=== PATIENT | female | born 1945 | race Caucasian/White ===

== ENCOUNTER 2016-07-06 06:39 | Inpatient (IN) | payer OTHER, MEDICARE ==
[2016-06-18 13:44] VITALS: BMI 42.0
--- NOTE | 2016-06-18 14:27 | PAT Medication Instructions ---
Service Date Jun 18, 2016. 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 Instructions For Your Scheduled Surgery Methotrexate (Methotrexate), 17.5 MG PO WEEK (check with obstetrics and gynecology professor for instructions) Albuterol Inhaler (Ventolin Inhaler), 2 PUFFS INH QID PRN (not longer taking) Albuterol Sulf (Albuterol Sulfate 0.083% For Inh), 3 ML INH QID PRN (not longer taking) - Hold the following medications 2 weeks prior to surgery: Red Yeast Rice Extract (Red Yeast Rice), 600 MG PO QAM Coenzyme Q10 (Ubidecarenone) (Co Q-10), 50 MG PO QAM Fish Oil (Hyannis Port-3), 1 CAP PO QAM Sulfasalazine (Sulfazine Ec), 1,000 MG PO TID (per surgeon instructions) Meloxicam (Mobic), 15 MG PO QAM (per surgeon instructions) - Hold the following medications the morning of surgery: Folic Acid (Folvite), 5 MG PO QAM Lisinopril/Hctz (Prinzide 20-25MG), 1 TAB PO QAM - Take the following medications the morning of surgery with a sip of water: Tramadol (Ultram), 100 MG PO TID PRN for RN (can take up to four hours prior to surgery if needed) - Take the following medications as scheduled the night before surgery: Tramadol (Ultram), 100 MG PO TID PRN for RN. Omeprazole (Omeprazole), 20 MG PO HS If you have any questions please call us at [phone] or [phone] ( [place]) or [phone]
[2016-06-18 14:51] LABS: BASO % 0.3 %; BASO ABS # 0.02 K/uL (0-0.2); COMPLETE YES; EOS % 1.5 %; HEMATOCRIT 37.4 % (37-47); IG% 0.3 %; LYMPH % 24.8 %; LYMPH ABS # 1.97 K/uL (1.2-3.4); MEAN CORPUSCULAR HEMOGLOBIN 29.9 pg (25-34); MEAN PLATELET VOLUME 10.8 fL (7.4-10.4); MONO % 10.2 %; NEUT % 62.9 %; PLATELET COUNT 195 K/uL (130-400); RED BLOOD COUNT 4.25 M/uL (4.2-5.4); WHITE BLOOD COUNT 7.93 K/uL (4.8-10.8)
[2016-06-18 15:01] LABS: PARTIAL THROMBOPLASTIN RATIO 1.2; PROTHROMBIN TIME (PATIENT) 11.1 SECONDS (9.0-12.0)
--- NOTE | 2016-06-18 15:05 | DIAGNOSTIC IMAGING REPORT ---
CHEST 2 VIEWS ROUTINE CLINICAL HISTORY: pat preoperative evaluation COMPARISON STUDY: 06/27/2012 FINDINGS: Mild cardiomegaly. Chronic bibasilar plaque atelectasis. No focal infiltrate. Moderate degenerative changes thoracic spine. IMPRESSION: Chronic change. No acute process. Electronically signed by: Vin Wallace M.D. 06/18/2016 3:04 PM Dictated Date/Time: 06/18/2016 3:03 PM
[2016-06-18 15:10] LABS: URINE APPEARANCE CLEAR (CLEAR); URINE BILIRUBIN NEG (NEG); URINE COLOR DK YELLOW; URINE NITRITE NEG (NEG); URINE SPECIFIC GRAVITY 1.011 (1.000-1.030); UROBILINOGEN NEG (NEG); ZZUR CULT IF INDIC CLEAN CATCH YES
[2016-06-18 15:10] LABS: BUN/CREATININE RATIO 19.9 (10-20); CALCIUM 9.3 mg/dl (8.5-10.1); CREATININE 0.88 mg/dl (0.60-1.20); POTASSIUM 3.6 mmol/L (3.5-5.1)
[2016-06-18 15:16] LABS: MANUAL MICROSCOPIC REQUIRED? NO; REVIEW REQ? NO
--- NOTE | 2016-07-02 08:47 | HISTORY & PHYSICAL EXAMINATION ---
DATE OF ADMISSION: 07/06/2016 CHIEF COMPLAINT: Right hip pain. HISTORY OF PRESENT ILLNESS: Key is a 71-year-old female with a 10-year history of right hip pain. She rates her pain a 10/10. She has pain with her daily activities. She has limited standing and walking tolerance. Pain is worse with weightbearing. The patient has had injections, aqua therapy, anti-inflammatories and tramadol over the years without relief. She has failed conservative treatment and is scheduled for right hip replacement. PAST MEDICAL HISTORY: Rheumatoid arthritis, hypertension, asthma, Park's esophagus, GERD, monoclonal gammopathy, Zenker diverticulum, and sleep apnea. She denies heart disease, diabetes, or DVT. PAST SURGICAL HISTORY: Tonsillectomy, appendectomy, tubal ligation, D\T\C, hysterectomy, cholecystectomy, microdiscectomy L4-L5, left knee arthroscopy, right knee arthroscopy, Zenker's diverticulum repair, EGD, left knee arthroplasty, right total knee arthroplasty, bilateral cataract extraction, and colonoscopy. SOCIAL HISTORY: The patient denies alcohol or tobacco use. She lives in a single-story home. She lives alone and is retired. FAMILY HISTORY: Negative for DVT. MEDICATIONS: Sulfasalazine 500 mg 2 tablets t.i.d., methotrexate 2.5 mg 7 tablets weekly, fish oil 1200 mg daily, meloxicam 15 mg daily, red yeast rice 600 mg daily, CoQ10 50 mg daily, tramadol 50 mg 2 tablets t.i.d., folic acid 1 mg 5 tablets daily, lisinopril 20/25 mg daily, omeprazole 20 mg daily, CPAP at bedtime, albuterol inhaler 2 puffs p.r.n. ALLERGIES: IVP DYE, THEOPHYLLINE, ANTIHISTAMINES, SHRIMP, PAPER TAPE, CATGUT SUTURE, AND PLAQUENIL. REVIEW OF SYSTEMS: See HPI. Ten other systems reviewed, all negative. PHYSICAL EXAMINATION: VITAL SIGNS: Height 5 feet 4 inches, weight 244 pounds. BMI 42. GENERAL: This is a well-developed, well-nourished female who is alert and oriented x3. Mood and affect are appropriate. HEENT: Normocephalic, atraumatic. Mucous membranes are moist and intact. NECK: Supple without lymphadenopathy. HEART: Regular rate and rhythm without murmurs, rubs or gallops. LUNGS: Clear to auscultation without wheezes or rhonchi. ABDOMEN: Soft and nontender. Bowel sounds are equal and active. EXTREMITIES: No ecchymosis, redness or warmth. Thigh and calf are soft and nontender. Log roll of the hip reproduces pain in the groin. Range of motion is decreased. She is neurovascularly intact with +5/5 strength. X-RAY EXAMINATION: AP and lateral views show joint space narrowing and osteophyte formation. IMPRESSION: Degenerative joint disease, right hip. PLAN: The patient will be admitted for a right total hip arthroplasty. We will plan on aspirin for DVT prophylaxis. PCP is Dr. Brody Cisneros, [facility]. She will have [facility] for home physical therapy.
[~2016-07-06] VITALS: Ht 162.6 cm; Wt 112.0 kg
[2016-07-06] VITALS (8 sets, daily range): BP systolic 92–128; BP diastolic 56–73; PULSE 59–70; TEMP 36.3–36.7; O2SAT 94–98; Ht 162.6 cm; Wt 112.0 kg
[2016-07-06] MEDS: TRANEXAMIC ACID INJ 1,000 MG in SODIUM CHLORIDE 0.9% 100ML 100 ML IV SCH ×2 (06:30→09:29)
[~2016-07-06 06:39] MED LIST: ACETAMINOPHEN 500 MG TAB PO SCH; ALBU1NEB10 INH; ALBUAER19 INH; BUPIVACAINE 0.5 % 5 MG/1 ML PF 10ML VIAL ONE; CEFAZOLIN 2000 MG/60 ML D5W 60 ML IV SCH; COEN50CA2 PO; CeleBREX 200 MG CAP PO SCH; DEXAMETHASONE 4 MG TAB PO SCH; FAMOTIDINE 20 MG TAB PO SCH; FOLI1TAB7 PO; GABAPENTIN 300 MG CAP PO SCH; LACTATED RINGER'S 1000ML 1,000 ML IV SCH; LACTATED RINGER'S 1000ML 500 ML IV ONE; LACTATED RINGER'S 1000ML IV SCH; LISI20TA55 PO; MELO7.5T5 PO; METH2.5T PO; METOCLOPRAMIDE HCL 10 MG TAB PO SCH; OMEG10007 PO; OMEP20TA PO; OXYCODONE HCL 10 MG TABCR (OXYCONTIN) PO SCH; POLYMYXIN B SULFATE 100,000 UNITS in NSS 100ML IR SCH; RED600TA PO; ROPIVACAINE 5MG/ML 30 ML 150 MG, BUPIVACAINE/EPINEPHR 0.5% MPF 30 ML, KETOROLAC TROMETH... INFIL SCH; SULF500T35 PO; TRAM-10 PO; VANCOMYCIN INJ 400 MG in NSS 100ML IR SCH
--- NOTE | 2016-07-06 07:55 | DIAGNOSTIC IMAGING REPORT ---
FLEXION-EXTENSION VIEWS OF THE CERVICAL SPINE CLINICAL HISTORY: PRE OP, FLEXION/EXTENSION COMPARISON STUDY: No previous studies for comparison. FINDINGS: There are multilevel degenerative changes present. The prevertebral soft tissues are normal. There is no evidence of instability on flexion or extension. IMPRESSION: No evidence of instability on flexion or extension. Electronically signed by: Isaiah Lieberman M.D. 07/06/2016 7:54 AM Dictated Date/Time: 07/06/2016 7:51 AM
[2016-07-06] MEDS ORDERED: FENTANYL CITRATE INJ 50 MCG/1 ML 2 ML VIAL ONE (08:14)
[2016-07-06] MEDS ORDERED: MIDAZOLAM HCL 1 MG/ML 2ML VIAL ONE ×2 (08:14)
--- NOTE | 2016-07-06 08:25 | History & Physical Bridge Note ---
H&P Re-Evaluation Bridge Note: I have examined the patient, reviewed the History & Physical and in the interval since the performance of the History & Physical I have noted the following changes of clinical significance: No changes noted
[2016-07-06] MEDS ORDERED: augmentin PO (08:31)
[2016-07-06] MEDS ORDERED: ORTHO JOINT ANESTHETIC ONE (08:56)
[2016-07-06] MEDS ORDERED: BACITRACIN 50000 UNIT VIAL ONE (08:57)
[2016-07-06] MEDS ORDERED: POVIDONE-IODINE OP SOLN 30 ML BTL ONE (08:57)
[2016-07-06] MEDS ORDERED: LIDOCAINE HCL 2% 2 ML VIAL (20MG/ML) ONE (10:09)
[2016-07-06] MEDS ORDERED: ONDANSETRON INJ 2 MG/ML 2 ML VIAL ONE (10:09)
[2016-07-06] MEDS ORDERED: PROPOFOL IV EMULSION 10 MG/ML 20 ML VIAL IV ONE (10:09)
[2016-07-06] MEDS ORDERED: ATROPINE SULFATE 0.1 MG/ML 5ML SYR IV PRN (10:15)
[2016-07-06] MEDS ORDERED: KETOROLAC TROMETHAMINE 15 MG/ML VIAL IV. PRN (10:15)
[2016-07-06] MEDS ORDERED: PHENYLEPHRINE 100MCG/ML 5ML SYR IV PRN (10:15)
[2016-07-06] MEDS ORDERED: EpHEDrine SULFATE INJ 50 MG/ML AMP IV PRN (10:15)
[2016-07-06] MEDS ORDERED: ONDANSETRON INJ 2 MG/ML 2 ML VIAL IV PRN ×2 (10:15→11:30)
[2016-07-06] MEDS ORDERED: HYDROmorphone INJ 2 MG/ML SYR/VIAL IV PRN (10:15)
[2016-07-06] MEDS ORDERED: EpHEDrine SULFATE 50MG/5ML SYR ONE (10:59)
[2016-07-06] MEDS ORDERED: PHENYLEPHRINE HCL INJ 10 MG/ML VIAL ONE (10:59)
--- NOTE | 2016-07-06 11:16 | [facility] Post Operative Brief Note ---
Immediate Operative Summary Operative Date Jul 06, 2016. Pre-Operative Diagnosis Right hip degenerative joint disease Post-Operative Diagnosis Right hip degenerative joint disease MORBID OBESITY BMI 43 Procedure(s) Performed right total hip arthroplasty with direct anterior approach Surgeon Dr. Keegan Menjivar Loader Engineer Surgeon(s) Ángela Staples PA-C Estimated Blood Loss 150ML Findings OBESE INFLAM DJD Specimens A: right femoral head Complication(s) None Disposition Recovery Room / PACU
--- NOTE | 2016-07-06 11:18 | DIAGNOSTIC IMAGING REPORT ---
INTRAOPERATIVE RADIOGRAPH CLINICAL HISTORY: Right hip arthroplasty. Fluoroscopy time: 15 seconds. FINDINGS: A single spot fluoroscopic image of the right hip from an arthroplasty procedure is presented. A bipolar right hip arthroplasty is in near anatomic alignment. At least 2 cortical lag screws transfix the acetabular cup. There is no evidence of acute fracture on this fluoroscopic image. IMPRESSION: Intraoperative image from a right hip arthroplasty procedure as above. Electronically signed by: Aneudy Hunter M.D. 07/06/2016 11:17 AM Dictated Date/Time: 07/06/2016 11:16 AM
[2016-07-06] MEDS ORDERED: ALUMINUM/MAGNESIUM/SIMETH (MAALOX MAX) 30 ML UDC PO PRN (11:30)
[2016-07-06] MEDS ORDERED: OXYCODONE HCL IR 5 MG TAB (IMMEDIATE RELEASE) PO PRN (11:30)
[2016-07-06] MEDS ORDERED: ALBUTEROL HFA 8 GM INHALER INH PRN (11:30)
[2016-07-06] MEDS ORDERED: MAGNESIUM HYDROXIDE SUSP 30 ML UDC PO PRN (11:30)
[2016-07-06] MEDS ORDERED: BISACODYL 10 MG SUPP PR PRN (11:30)
[2016-07-06] MEDS ORDERED: METOCLOPRAMIDE HCL INJ 5 MG/ML 2 ML VIAL IV PRN (11:30)
[2016-07-06] MEDS ORDERED: ZOLPIDEM TARTRATE 5 MG TAB PO PRN (11:30)
[2016-07-06] MEDS ORDERED: ALBUTEROL 0.083% NEBU SOLN 3 ML VIAL INH PRN (11:30)
[2016-07-06] MEDS ORDERED: MoRPHine SULFATE 2 MG/ML CARP IV PRN (11:30)
[2016-07-06] MEDS ORDERED: SOD PHOSPHATE/SOD BIPHOSPHATE ENEMA 132 ML BTL PR PRN (11:30)
--- NOTE | 2016-07-06 12:18 | Anesthesiology Progress Note ---
Anesthesia Post Op Note Date & Time Jul 06, 2016 at 12:18 Vital Signs Pain Intensity: 0 Vital Signs Past 12 Hours Date Time Temp Pulse Resp B/P Pulse Ox O2 Delivery O2 Flow Rate FiO2 07/06/16 12:15 36.6 61 16 119/50 96 Nasal Cannula 2 07/06/16 12:05 63 16 112/56 98 Nasal Cannula 2 07/06/16 11:55 66 16 110/76 100 Nasal Cannula 2 07/06/16 11:45 61 16 112/57 100 Mask 10 07/06/16 11:39 36.4 63 16 118/51 97 Mask 10 07/06/16 07:52 36.7 67 16 128/67 96 Room Air Notes Mental Status: alert / awake / arousable, participated in evaluation Pt Amnestic to Procedure: Yes Nausea / Vomiting: adequately controlled Pain: adequately controlled Airway Patency, RR, SpO2: stable & adequate BP & HR: stable & adequate Hydration State: stable & adequate Anesthetic Complications: no major complications apparent
--- NOTE | 2016-07-06 13:10 | DIAGNOSTIC IMAGING REPORT ---
AP PELVIS AND RIGHT HIP 2 VIEWS CLINICAL HISTORY: Degenerative arthritis. COMPARISON STUDY: No previous studies for comparison. FINDINGS: There are postsurgical changes of a total right hip arthroplasty. The acetabular and femoral components appear well seated. Overlying surgical drains are evident. There is no fracture. There is no dislocation. IMPRESSION: Postsurgical changes of a total right hip arthroplasty. Electronically signed by: Isaiah Lieberman M.D. 07/06/2016 1:08 PM Dictated Date/Time: 07/06/2016 1:08 PM
[2016-07-06] MEDS: D5W AND 1/2NSS + 20MEQ KCL 1,000 ML IV SCH (13:45)
[2016-07-06] MEDS: ACETAMINOPHEN 500 MG TAB PO SCH ×2 (13:51→22:04)
[2016-07-06] MEDS: KETOROLAC TROMETHAMINE 15 MG/ML VIAL IV. SCH ×2 (13:52→22:05)
--- NOTE | 2016-07-06 14:58 | OPERATIVE REPORT ---
DATE OF OPERATION: 07/06/2016 PREOPERATIVE DIAGNOSIS: Degenerative arthritis, right hip. POSTOPERATIVE DIAGNOSIS: Same with morbid obesity, BMI of 42. PROCEDURE: Right total hip replacement. SURGEON: Josse Menjivar MD INSPECTOR MACHINED PARTS: ALESSANDRO Ortega ANESTHESIA: Spinal. BLOOD LOSS: 150 mL. REPLACEMENT FLUIDS: 1800 mL of crystalloid. DRAINS: Hemovacs x1. CULTURES: None. COMPLICATIONS: None. COMPONENTS USED: Suero and Nephew Polar hip system: Acetabulum size 50, femur size 4 lateral offset, and femoral head -3, 32 mm. NOTE: ALESSANDRO Ortega was present and assisted throughout due to the complicated nature of this case. She helped with preparation and set up, first assisted throughout and personally closed the fascial, subcutaneous and skin layers and applied the postoperative dressing. DESCRIPTION OF PROCEDURE: Following satisfactory spinal, the patient was supine. The patient was placed on the table with the right leg in the traction device and the left leg in the well leg luna. Leg was prepared with ChloraPrep and draped sterilely. Following a surgical time-out, an anterior approach was performed. The patient had a very large subcutaneous fat layer, which measured about 4 inches thick and made exposure tedious and required extra time and difficulty. Eventually, the fascia was divided in line with the incision and the interval between the sartorius and tensor muscles was opened. The circumflex femoral vessels were identified and ligated. An anterior capsulotomy was performed exposing the arthritic femoral neck and head. Femoral neck and head were trimmed and removed. The acetabular self-retraining retractor was placed. Acetabular preparation was completed and under fluoroscopic guidance, reaming was completed and a 50 shell was impacted into an anatomic position and secured with a dome screw. Local anesthetic was placed and after irrigation, the poly liner was placed. The femur was placed in a position of external rotation, extension and adduction. Access to the proximal canal was difficult because again of the obese body habitus. The canal was sounded and prepared up to the size 4. A trial reduction with a -3 head using fluoroscopy showed good fit and fill of the proximal canal and scientologist of leg lengths using fluoroscopic landmarks. The hip was dislocated and trial component removed. The final implant was placed. After irrigation, the hip was reduced. Fluoroscopy confirming similar position. A Betadine soak was performed. After 5 minutes, the Betadine was irrigated. The capsule was closed with 1-0 Vicryl interrupted. A drain was placed. Following irrigation, the fascia was closed with a running suture of #1 Vicryl, subcutaneous tissues with #1 and 2-0 Vicryl and the skin with a running subcuticular stitch of 3-0 V-Loc. Dermabond and a dry dressing were applied. The patient was returned to her bed in stable condition. I attest to the content of the Intraoperative Record and any orders documented therein. Any exceptio ns are noted below.
[2016-07-06] MEDS ORDERED: TRANEXAMIC ACID INJ 1,000 MG in SODIUM CHLORIDE 0.9% 100ML 100 ML IV SCH (17:30)
[2016-07-06] MEDS: CEFAZOLIN IV 2,000 MG in DEXTROSE 5% 50ML 50 ML IV SCH (17:47)
[2016-07-06] MEDS: ASPIRIN 81 MG ECTAB PO SCH (20:57)
[2016-07-06] MEDS: SENNA 8.6 MG TAB PO SCH (20:57)
[2016-07-07] VITALS (8 sets, daily range): BP systolic 91–103; BP diastolic 57–70; PULSE 58–65; TEMP 36.3–36.6; O2SAT 91–98
[2016-07-07] MEDS: TRAMADOL HCL 50 MG TAB PO PRN (00:26)
[2016-07-07] MEDS: D5W AND 1/2NSS + 20MEQ KCL 1,000 ML IV SCH ×2 (00:26→09:21)
[2016-07-07] MEDS: CEFAZOLIN IV 2,000 MG in DEXTROSE 5% 50ML 50 ML IV SCH (02:02)
[2016-07-07] MEDS: KETOROLAC TROMETHAMINE 15 MG/ML VIAL IV. SCH ×4 (02:03→21:05)
[2016-07-07 05:46] LABS: BASO % 0.1 %; BASO ABS # 0.01 K/uL (0-0.2); COMPLETE YES; HEMATOCRIT 29.5 % (37-47); IG% 0.3 %; LYMPH % 6.6 %; LYMPH ABS # 1.18 K/uL (1.2-3.4); MEAN CORPUSCULAR HEMOGLOBIN 29.1 pg (25-34); MEAN CORPUSCULAR HGB CONC 34.2 g/dl (32-36); MEAN PLATELET VOLUME 11.1 fL (7.4-10.4); MONO % 10.3 %; NEUT % 82.7 %; PLATELET COUNT 185 K/uL (130-400); RED BLOOD COUNT 3.47 M/uL (4.2-5.4); WHITE BLOOD COUNT 18.01 K/uL (4.8-10.8)
[2016-07-07] MEDS: ACETAMINOPHEN 500 MG TAB PO SCH ×3 (05:52→21:05)
[2016-07-07 06:11] LABS: BUN/CREATININE RATIO 27.5 (10-20); CALCIUM 8.9 mg/dl (8.5-10.1); CREATININE 1.1 mg/dl (0.60-1.20); POTASSIUM 4.5 mmol/L (3.5-5.1)
[2016-07-07] MEDS: PANTOprazole SOD 40 MG TAB PO SCH (08:41)
[2016-07-07] MEDS: MULTIVITAMIN TAB PO SCH (08:42)
[2016-07-07] MEDS: LISINOPRIL/HCTZ 20/25MG TAB PO SCH (08:43)
[2016-07-07] MEDS: ASPIRIN 81 MG ECTAB PO SCH ×2 (08:43→21:04)
[2016-07-07] MEDS ORDERED: COENZYME Q10 50 MG PO SCH (09:00)
--- NOTE | 2016-07-07 09:49 | Orthopedic Progress Note ---
Orthopedic Progress Note Date of Service Jul 07, 2016. Subjective Post OP Day: 1 Reports: feeling well, Denies: SOB, calf pain, chest pain, light headedness, nausea / vomiting Objective calves soft nontender, N/V intact, dressing C/D/I, A&O x3, toes mobile, hemovac drainage (155/100cc per shift) Date Time Temp Pulse Resp B/P Pulse Ox O2 Delivery O2 Flow Rate FiO2 07/07/16 08:45 65 101/63 07/07/16 07:13 36.3 64 16 91/57 91 Room Air 07/07/16 07:05 Room Air 07/07/16 03:00 36.6 64 18 94/58 98 CPAP 07/07/16 00:28 96 CPAP 07/06/16 23:21 36.4 62 18 92/56 94 CPAP 07/06/16 18:30 96 Nasal Cannula 2.0 07/06/16 15:45 36.4 64 16 114/73 96 Nasal Cannula 2.0 07/06/16 14:54 36.3 65 16 97/64 96 Room Air 07/06/16 13:46 68 16 92/58 96 Nasal Cannula 2.0 07/06/16 13:15 70 16 100/61 95 2.0 07/06/16 13:04 97 Nasal Cannula 2.0 07/06/16 12:50 Nasal Cannula 2.0 07/06/16 12:45 36.6 59 18 101/66 98 Nasal Cannula 2.0 07/06/16 12:35 36.6 64 16 110/53 98 Nasal Cannula 2 07/06/16 12:25 62 16 108/53 96 Nasal Cannula 2 07/06/16 12:15 36.6 61 16 119/50 96 Nasal Cannula 2 07/06/16 12:05 63 16 112/56 98 Nasal Cannula 2 07/06/16 11:55 66 16 110/76 100 Nasal Cannula 2 07/06/16 11:45 61 16 112/57 100 Mask 10 07/06/16 11:39 36.4 63 16 118/51 97 Mask 10 Laboratory Results 24 Hours: Test 07/07/16 04:45 White Blood Count 18.01 K/uL Red Blood Count 3.47 M/uL Hemoglobin 10.1 g/dL Hematocrit 29.5 % Mean Corpuscular Volume 85.0 fL Mean Corpuscular Hemoglobin 29.1 pg Mean Corpuscular Hemoglobin Concent 34.2 g/dl Platelet Count 185 K/uL Mean Platelet Volume 11.1 fL Neutrophils (%) (Auto) 82.7 % Lymphocytes (%) (Auto) 6.6 % Monocytes (%) (Auto) 10.3 % Eosinophils (%) (Auto) 0.0 % Basophils (%) (Auto) 0.1 % Neutrophils # (Auto) 14.92 K/uL Lymphocytes # (Auto) 1.18 K/uL Monocytes # (Auto) 1.85 K/uL Eosinophils # (Auto) 0.00 K/uL Basophils # (Auto) 0.01 K/uL Assessment & Plan Assessment: POD#1 sp right JUANITO, direct anterior Inhouse Planning Pain Management: Celebrex, PO Tylenol, Oxy IR DVT Prophylaxis: TEDs, SCDs, ASA Discharge Planning Discharge Planning: home with home health (PLAN ON DC TO HOME WEDS.)
--- NOTE | 2016-07-07 10:54 | Anesthesiology Progress Note ---
Anesthesia Post Op Note Date & Time Jul 07, 2016 at 10:53 Vital Signs Pain Intensity: 1.0 Vital Signs Past 12 Hours Date Time Temp Pulse Resp B/P Pulse Ox O2 Delivery O2 Flow Rate FiO2 07/07/16 10:51 36.3 58 16 97/61 96 Room Air 07/07/16 08:45 65 101/63 07/07/16 07:13 36.3 64 16 91/57 91 Room Air 07/07/16 07:05 Room Air 07/07/16 03:00 36.6 64 18 94/58 98 CPAP 07/07/16 00:28 96 CPAP 07/06/16 23:21 36.4 62 18 92/56 94 CPAP Notes Mental Status: alert / awake / arousable, participated in evaluation Pt Amnestic to Procedure: Yes Nausea / Vomiting: adequately controlled Pain: adequately controlled Airway Patency, RR, SpO2: stable & adequate BP & HR: stable & adequate Hydration State: stable & adequate Neuraxial Anesthesia: sensory block resolved Anesthetic Complications: no major complications apparent
[2016-07-07] MEDS: SENNA 8.6 MG TAB PO SCH (21:00)
[2016-07-08] MEDS: TRAMADOL HCL 50 MG TAB PO PRN ×3 (00:01→13:32)
[2016-07-08] MEDS: KETOROLAC TROMETHAMINE 15 MG/ML VIAL IV. SCH ×2 (01:50→09:17)
[2016-07-08] MEDS: ACETAMINOPHEN 500 MG TAB PO SCH ×2 (05:34→13:35)
[2016-07-08 07:26] VITALS: BP 94/51; PULSE 63; TEMP 36.3; O2SAT 94
--- NOTE | 2016-07-08 08:14 | Orthopedic Progress Note ---
Orthopedic Progress Note Date of Service Jul 08, 2016. Subjective Post OP Day: 2 Reports: feeling well, Denies: SOB, calf pain, chest pain, light headedness, nausea / vomiting Objective calves soft nontender, N/V intact, hip located, dressing C/D/I, A&O x3, toes mobile Date Time Temp Pulse Resp B/P Pulse Ox O2 Delivery O2 Flow Rate FiO2 07/08/16 07:26 36.3 63 16 94/51 94 Room Air 07/07/16 23:20 Room Air 07/07/16 23:15 36.5 64 20 103/70 98 Room Air 07/07/16 21:43 96 Room Air 07/07/16 15:10 36.4 58 18 103/65 96 Room Air 07/07/16 10:51 36.3 58 16 97/61 96 Room Air 07/07/16 08:45 65 101/63 Assessment & Plan Assessment: POD#2 sp right JUANITO, direct anterior Inhouse Planning Pain Management: Celebrex, PO Tylenol, Oxy IR DVT Prophylaxis: TEDs, SCDs, ASA Discharge Planning Discharge Planning: home with home health (PLAN ON DC TO HOME WEDS.)
--- NOTE | 2016-07-08 08:17 | Discharge Instructions ---
Discharge Instructions Date of Service Jul 08, 2016. Admission Reason for Admission: Right Hip Degenerative Arthritis Discharge Discharge Diagnosis / Problem: SP RIGHT TOTAL HIP Discharge Goals Goal(s): Decrease discomfort, Improve function, Increase independence Activity Recommendations Activity Limitations: per Instructions/Follow-up section . Instructions / Follow-Up Instructions / Follow-Up ACTIVITY RECOMMENDATIONS: SELF CARE INSTRUCTIONS AFTER TOTAL HIP REPLACEMENT : Direct Anterior Approach Until the incision and soft tissues around your hip have healed, there is a possibility that the hip prosthesis could dislocate. A. Hip flexion ( Up & Down out of chair or steps ) may be difficult. This is normal. B. Numbness in front of the thigh is also normal for a few weeks. C. Use hand rails when walking on stairs. D. Wear low heeled shoes with non-slip soles. E. Be sure that your floors are free of things that could trip you - throw rugs , electrical cords, small objects. Avoid wet and waxed floors, especially with crutches and canes. F. Try to walk several times a day with rest periods between. G. Continue with all the exercises taught to you in the hospital. Again, make walking a part of your daily routine. SPECIAL CARE INSTRUCTIONS: VERY IMPORTANT TO READ AND REVIEW A. You may still be at risk for phlebitis and blood clots. 1. Wear surgical stockings (HATTIE hose) for 2 weeks after surgery to improve circulation and reduce swelling. 2. Take Aspirin 81mg twice daily for 4 weeks or as directed by your doctor. This is your blood thinner. 3. High risk patients may be prescribed a stronger blood thinner if necessary. 4. If you are on Coumadin normally, your family doctor/optical designer should monitor your blood work. Expect a phone call the day of or the day after bloodwork is drawn to adjust your dosage. B. You must take antibiotics before having dental work, bladder, bowel and other surgery. Your doctor will provide you with a permanent card to carry describing precautions. C. Call [facility] if you have a fever, redness or swelling around the incision, cloudy drainage from incision, or sudden increase in pain in your hip, not relieved by your regular pain medication. D. Please call the office at if you have any concerns or questions about your operation or recovery. * YOU MAY SHOWER, NO TUB BATHS UNTIL CLEARED BY YOUR DOCTOR. - Keep an extra close eye on the top portion of your incision. Be sure to keep clean & dry. * WEAR HATTIE HOSE 20 HOURS PER DAY FOR 2 WEEKS. * YOU MAY PROGRESS FROM A WALKER, TO A CANE, TO INDEPENDENT AT YOUR OWN PACE. * MOST PATIENTS WILL HAVE HOME NURSING FOR THERAPY. IF YOU DECIDE TO DO OUTPATIENT PHYSICAL THERAPY, PLEASE SCHEDULE THIS 3 TIMES PER WEEK. LEAVE SURGICAL DRESSING ON X 7 DAYS THEN REMOVE. ONCE REMOVED PLEASE FOLLOW INSTRUCTIONS BELOW. * DERMABOND Prineo- This is a mesh tape dressing that is covered with glue. It should remain in place until the incision is properly healed, usually 10-14 days. This dressing is designed to naturally slough off. You may trim the excess mesh tape as it peels off. Incision may be briefly wet in a shower. Dry immediately by blotting with a clean, dry towel. Do not bath or swim until instructed by your doctor. Do not scratch, rub, or pick at the dressing. Do not apply any topical ointments or lotions until dressing is completely removed and/or instructed by your doctor. There may be a small piece of suture material at one end of your incision. Do not pull or trim this. If it is bothersome or catching on clothing, you may cover it with a band-aid. FOLLOW UP VISIT: If appointment is not already scheduled: Please call [facility] to make a follow-up appointment for 2 weeks after your surgery at . Current Hospital Diet Patient's current hospital diet: Regular Diet Discharge Diet Recommended Diet: Regular Diet Procedures Procedures Performed: right total hip arthroplasty with direct anterior approach Pending Studies Studies pending at discharge: no Medical Emergencies . Who to Call and When: Medical Emergencies: If at any time you feel your situation is an emergency, please call 911 immediately. . Non-Emergent Contact Non-Emergency issues call your: Surgeon . "Provider Documentation" section prepared by Ángela Staples. VTE Core Measure Inpt VTE Proph given/why not?: Other Anticoagulation, T.E.D. Stockings, SCD's [place] Drug Monitoring Program Search Results: patient reviewed within database, no issues identified
[2016-07-08] MEDS ORDERED: SNK PO (08:20)
[2016-07-08] MEDS ORDERED: RXC5 PO (08:20)
[2016-07-08] MEDS ORDERED: ACET-1138 PO (08:20)
[2016-07-08] MEDS ORDERED: ONDA8TAB6 PO (08:20)
[2016-07-08] MEDS ORDERED: ASPEC81 PO (08:20)
[2016-07-08] MEDS ORDERED: CLB200 PO (08:20)
[2016-07-08] MEDS: LISINOPRIL/HCTZ 20/25MG TAB PO SCH (09:00)
[2016-07-08] MEDS: ASPIRIN 81 MG ECTAB PO SCH (09:17)
[2016-07-08] MEDS: MULTIVITAMIN TAB PO SCH (09:18)
[2016-07-08] MEDS: PANTOprazole SOD 40 MG TAB PO SCH (09:19)
[2016-07-08 10:44] VITALS: BP 124/69; PULSE 62; O2SAT 98
[2016-07-08 11:46] VITALS: O2SAT 94
[2016-07-08 13:14] VITALS: BP 124/69; PULSE 62; TEMP 36.3; O2SAT 94
[2016-07-08] MEDS ORDERED: CeleBREX 200 MG CAP PO SCH (21:00)
--- NOTE | 2016-07-14 15:06 | DISCHARGE SUMMARY ---
DISCHARGE DIAGNOSIS: Degenerative joint disease, right hip. SECONDARY DIAGNOSIS: Morbid obesity. CONSULTS: None. COMPLICATIONS: None. PROCEDURE: The patient underwent a right total hip arthroplasty, direct anterior approach with Dr. Menjivar on 07/06/2016. BRIEF HISTORY: Please see previously dictated history and physical. HOSPITAL SUMMARY: The patient was admitted on the above day for the above procedure. Procedure went without complication. Postop day 1, the patient was feeling well without complaints. She denied chest pain or shortness of breath. Vital signs were stable. She was afebrile. Dressing was clean, dry and intact. She was neurovascularly intact. Calves were soft and nontender. Hemovac drained 155 and 100 mL per shift. Hemoglobin was 10.1. The patient began physical therapy per protocol. Postop day 2, the patient was improving. She denied chest pain or shortness of breath. Vital signs were stable. She was afebrile. Dressing was clean, dry and intact. She was neurovascularly intact. Calves were soft and nontender. The patient continued physical therapy. She was discharged home later that day in stable condition. For further review please see the chart. Lab, x-ray data and discharge instructions as per chart.
== END 2016-07-08 14:11 | disposition home health service (06) | DRG 470 ==
LOC: ENRESERVDT → ENRESERVTM → C.ACU 06:39 → C.3E 08:00
PROVIDERS: ADMIT Orthopaedic Surgery; ATTEND Orthopaedic Surgery
PROC: 0SR90JA Replacement of Right Hip Joint with Synthetic Substitute, Uncemented, Open Approach (ICD-10-PCS; principal; 2016-07-06 09:15)
DX: M16.11 Unilateral primary osteoarthritis, right hip (principal); Z68.41 Body mass index [BMI] 40.0-44.9, adult; E66.01 Morbid (severe) obesity due to excess calories; M06.9 Rheumatoid arthritis, unspecified; K21.9 Gastro-esophageal reflux disease without esophagitis; J45.909 Unspecified asthma, uncomplicated; I10 Essential (primary) hypertension; Z96.653 Presence of artificial knee joint, bilateral; Z98.890 Other specified postprocedural states; Z79.899 Other long term (current) drug therapy